=== PATIENT | female | born 1975 | race Hispanic/Latino ===

== ENCOUNTER 2018-03-18 21:44 | Emergency (ER) | payer OTHER ==
[2018-03-18 21:57] VITALS: RESP 18
[2018-03-18] MEDS ORDERED: Lidocaine 1% Inj (20ml) IJ ONE (22:08)
[2018-03-18] MEDS ORDERED: Bacitracin 500 Units/gm Oint Foilpak UD TOP STA (22:08)
--- NOTE | 2018-03-18 22:12 | ED PDOC ---
Upper Extremity Pain/Injury Time Seen by Provider: 03/18/18 21:58 Chief Complaint (Nursing): Finger,Hand,&Wrist Chief Complaint (Provider): Finger Laceration s/p Fall History Per: Patient History/Exam Limitations: no limitations Onset/Duration Of Symptoms: Mins (just EDITORIAL MANAGER) Severity: Mild Pain Scale Rating Of: 4 Additional Complaint(s): Patient is a 43 year old female who presents for evaluation of a laceration to the left second digit. Patient reports just prior to arrival she tripped on her front steps and fell against the brick, sustaining multiple abrasions to the left hand and a laceration to the second digit. Patient reports she did hit her head, but denies any headache, dizziness, nausea, vomiting, LOC, visual changes. Patient took no medications prior to arrival. Patient has no complaints and is seeking wound evaluation. PMD: [place] Tetanus: UTD Patient is right hand dominant. Past Medical History Reviewed: Historical Data, Nursing Documentation, Vital Signs Vital Signs: Last Vital Signs Temp 97.7 F 03/18/18 21:54 Pulse 78 03/18/18 21:54 Resp 18 03/18/18 21:54 BP 125/83 03/18/18 21:54 Pulse Ox 97 03/18/18 21:54 - Medical History PMH: Hypothyroidism - Surgical History Other surgeries: breast lumpectomy, thyroidectomy - Family History Family History: States: Unknown Family Hx - Living Arrangements Living Arrangements: With Family - Immunization History Hx Tetanus Toxoid Vaccination: Yes - Home Medications Home Medications: Ambulatory Orders Medication Instructions Recorded RX: Bacitracin Ointment 1 applic TOP BID #1 tube 03/18/18 [Bacitracin] RX: Naproxen 500 mg PO BID PRN #20 tab 03/18/18 - Allergies Allergies/Adverse Reactions: Allergies Allergy/AdvReac Type Severity Reaction Status Date / Time No Known Allergies Allergy Verified 03/18/18 21:53 Review of Systems ROS Statement: Except As Marked, All Systems Reviewed And Found Negative Skin: Positive for: Other (abrasions to left hand, laceration to left 2nd digit) Physical Exam - Reviewed Nursing Documentation Reviewed: Yes Vital Signs Reviewed: Yes - Physical Exam Appears: Positive for: Well, Non-toxic, No Acute Distress Head Exam: Positive for: NORMOCEPHALIC Skin: Positive for: Normal Color, Warm, Dry Eye Exam: Positive for: Normal appearance ENT: Positive for: Other (Airway patent, (-) stridor. Mucus membranes moist.) Neck: Positive for: Painless ROM, Supple Cardiovascular/Chest: Positive for: Regular Rate, Rhythm Respiratory: Positive for: Normal Breath Sounds Back: Negative for: Vertebral Tenderness Extremity: Positive for: Normal ROM, Tenderness (to laceration site), Capillary Refill (intact; sensation intact throughout), Other (multiple scattered superficial abraions to left hand. (+) 1.5 cm curvilinear laceration to the middle phalanx of the left 2nd digit (-) edema (-) palpable bony deformity (-) active bleeding (-) ecchymosis. ). Negative for: Deformity, Swelling Neurologic/Psych: Positive for: Alert, scorekeeper II-XII (grossly intact), Oriented (x3), Mood/Affect (appropriate), Cerebellar Tests (intact), Gait (steady in ED). Negative for: Motor/Sensory Deficits, Aphasia, Facial Droop - ECG O2 Sat by Pulse Oximetry: 97 (RA) Pulse Ox Interpretation: Normal Medical Decision Making Medical Decision Making: Initial impression: hand abrasions, finger laceration s/p fall Plan: -Wound repair -Abrasions irrigated with saline and Bacitracin applied. -Lidocaine 1% 2mL for laceration repair 2224 Laceration repair performed by Kimani LAGUNAS. Patient tolerated procedure well. See procedure note. Educated on wound care. Removal of stitches in 5-7 days. 2250 Lab/Diagnostic results d/w the patient in great detail. Diagnosis of abrasions of hand, finger laceration s/p fall d/w the patient. Based on history, exam and diagnostic results, plan will be for outpatient follow up. Patient instructed to follow-up with pmd / referral provided / the clinic in 1- 2 days without fail. Advised to take medication as prescribed. Return to the emergency room at any time for any new or worsening symptoms. Patient states she fully agrees with and understands discharge instructions. States that she agrees with the plan and disposition. Verbalized and repeated discharge instructions and plan. I have given the patient opportunity to ask any additional questions. Procedures - Laceration/Wound Repair Finger Laceration Wound Length (cm): 1.5 Wound's Depth, Shape: superficial (curvilinear) Wound Explored: clean Irrigated w/ Saline (ccs): 100 Betadine Prep?: No Anesthesia: 1% Lidocaine Volume Anesthetic (ccs): 2 Wound Debrided: minimal Wound Repaired With: Sutures Suture Size/Type: 5:0, proline Number of Sutures: 3 Layer Closure?: No Wound Complexity: Simple Progress: Patient tolerated procedure well. Bacitracin and bandaid applied. Disposition - Clinical Impression Clinical Impression: Laceration of finger of left hand, Hand abrasion, Fall on steps - Patient ED Disposition Is Patient to be Admitted: No Counseled Patient/Family Regarding: Studies Performed, Diagnosis, Need For Followup, Rx Given - Disposition Referrals: [place] YOUNG,Faustino Tillman [Family Provider] - Disposition: Routine/Home Disposition Time: 22:50 Condition: STABLE Additional Instructions: Suture removal in 5-7 days. The emergency medical care you received today was directed at your acute symptoms. If you were prescribed any medication, please fill it and take as directed. It may take several days for your symptoms to resolve. Return to the Emergency Department if your symptoms worsen, do not improve, or if you have any other problems. Please contact your doctor in 2 days for re-evaluation and follow up / or call one of the physicians/clinics you have been referred to that are listed on the Patient Visit Information form that is included in your discharge packet. Bring any paperwork you were given at discharge with you along with any medications you are taking to your follow up visit. Our treatment cannot replace ongoing medical care by a primary care provider (PCP) outside of the emergency department. Prescriptions: RX: Bacitracin Ointment [Bacitracin] 1 applic TOP BID #1 tube RX: Naproxen 500 mg PO BID PRN #20 tab PRN Reason: Pain, Moderate (4-7) Instructions: Skin Abrasions, Wound Care, Laceration Repair With Stitches (DC) Forms: [employer] (Armenian) Print Language: EAST TIMORESE - POA Present On Arrival: Falls Or Trauma
[2018-03-18] MEDS ORDERED: Lidocaine 1% Inj (20ml) ONE (22:30)
[2018-03-18 23:04] VITALS: BP 100/60; PULSE 72; TEMP 98
[2018-03-19 16:01] VITALS: O2SAT 97
== END 2018-03-18 23:03 | disposition home or self-care (01) ==
LOC: H.ER 21:44
DX: S61.211A Laceration without foreign body of left index finger without damage to nail, initial encounter (principal); S60.512A Abrasion of left hand, initial encounter; W10.9XXA Fall (on) (from) unspecified stairs and steps, initial encounter; Y92.89 Other specified places as the place of occurrence of the external cause; E03.9 Hypothyroidism, unspecified